=== PATIENT | male | born 1990 | race Caucasian/White ===

== ENCOUNTER 2020-01-12 22:31 | Emergency (ER) | payer OTHER ==
[~2020-01-12] VITALS: Ht 180.3 cm; Wt 103.4 kg
[2020-01-12 22:40] VITALS: Ht 180.3 cm; Wt 103.4 kg
[2020-01-13 00:56] VITALS: BP 106/56
== END 2020-01-13 00:56 | disposition home or self-care (01) ==
LOC: ED 22:31
DX: T78.49XA Other allergy, initial encounter (principal); X58.XXXA Exposure to other specified factors, initial encounter
CPT/HCPCS: J2930; Q0163